=== PATIENT | female | born 1970 | race Caucasian/White ===

== ENCOUNTER → 2017-01-15 | Day surgery (SDC) | payer OTHER ==
[~2017-01-15] MED LIST: ALPR0.5T6 PO; IV RINGERS,LACTATED 1000ML 1,000 ML IV SCH; LIDOCAINE 1% 1 ML SYRINGE. ID PRN; LIDOCAINE 2% PF Vial for OR 5 ML VIAL. ONE; MIDAZOLAM HCL/PF 2 MG/2 ML VIAL. IV PRN; PROPOFOL 20 ML IV ONE; fentaNYL PF VIAL 100 MCG/2 ML VIAL IV PRN
[2017-01-15 14:44] VITALS: BP 131/63
--- NOTE | 2017-01-16 04:44 | CONS ---
DATE OF CONSULTATION: 01/15/2017 REASON FOR CONSULTATION: Dysphagia. REFERRING PHYSICIAN: Chintan Giordano M.D. HISTORY OF PRESENT ILLNESS: A 46-year-old female whose past medical history is significant for thyroid disease, Schatzki's ring, is seen with recurrent dysphagia in the cervical location mainly with solids. She has taken [id number] acid suppression as needed with marked improvement in her symptoms with heartburn. There is minimal caffeine, alcohol and/or nicotine use and no bleeding, no change in weight or appetite. With her recurrent symptoms, she is here for further evaluation. PAST MEDICAL HISTORY: Thyroid disease, Schatzki's ring, right upper quadrant pain. ALLERGIES: IODINE. MEDICATIONS: At the present time include alprazolam. FAMILY AND SOCIAL HISTORY: Father is secondary to [employer]. 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 PAST SURGICAL HISTORY: Status post tonsillectomy, tubal ligation and endometriosis ____. REVIEW OF SYSTEMS: Per records. PHYSICAL EXAMINATION: GENERAL: Reveals a well-nourished, well-developed female who is alert, conversant, in no acute distress. VITAL SIGNS: Temp is 100.2, pulse 77, respiratory rate is 20. HEENT: Reveals a normocephalic, atraumatic head. Pupils and extraocular muscles not tested. Sclerae anicteric. NECK: Supple. LUNGS: Clear. CARDIOVASCULAR: Reveals an S1, S2 without S3, S4 or appreciable murmur. ABDOMEN: Reveals a soft abdomen, normal bowel sounds, without appreciable hepatosplenomegaly. IMPRESSION: Dysphagia with intermittent heartburn, most likely secondary to recurrent Schatzki's ring, Zenker's diverticulum, achalasia and/or Haile's esophagus in the differential. Therefore, recommend upper endoscopy to further assess. Risks and benefits of the procedure including the risk of hemorrhage or perforation were discussed with the patient who is willing to proceed at this time. I would like to thank Dr. Giordano for allowing us to consult and participate in the patient's care. KIMMIE BOSWELL MD DR: CLIFTON/sarai JOB#: [id number] / [id number] CHINTAN Fu MD
== END | disposition home or self-care (01) ==
LOC: SURG 13:31
PROVIDERS: ATTEND Internal Medicine Gastroenterology
DX: K22.2 Esophageal obstruction (principal); K29.50 Unspecified chronic gastritis without bleeding; K21.9 Gastro-esophageal reflux disease without esophagitis; F41.9 Anxiety disorder, unspecified; F32.9 Major depressive disorder, single episode, unspecified; Z90.710 Acquired absence of both cervix and uterus; Z91.041 Radiographic dye allergy status
CPT/HCPCS: 43235; 43450; J2001; J2704

== ENCOUNTER 2019-03-18 07:30 | Emergency (ER) | payer OTHER, BC ==
[~2019-03-18] VITALS: Ht 170.2 cm; Wt 90.7 kg
[~2019-03-18 07:30] MED LIST changes: -IV RINGERS,LACTATED 1000ML 1,000 ML IV SCH; -LIDOCAINE 1% 1 ML SYRINGE. ID PRN; -LIDOCAINE 2% PF Vial for OR 5 ML VIAL. ONE; -MIDAZOLAM HCL/PF 2 MG/2 ML VIAL. IV PRN; -PROPOFOL 20 ML IV ONE; -fentaNYL PF VIAL 100 MCG/2 ML VIAL IV PRN
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
[2019-03-18 07:58] LABS: BASO # 0.1 x10^3/uL (0.0-0.2); BASO % 1 % (0-3); EOS # 0.5 x10^3/uL (0.0-0.7); EOS % 7 % (0-3); HEMATOCRIT 40.1 % (36.0-47.0); HEMOGLOBIN 13.7 g/dL (12.0-15.5); LYMPH # 2.3 x10^3/uL (1.0-4.8); LYMPH % 36 % (24-48); MEAN CORPUSCULAR HEMOGLOBIN 30 pg (25-35); MEAN CORPUSCULAR HGB CONC 34 g/dL (31-37); MEAN CORPUSCULAR VOLUME 89 fL (79-100); MONO # 0.3 x10^3/uL (0.0-1.1); MONO % 5 % (0-9); NEUT # 3.2 x10^3/uL (1.8-7.7); NEUT % 50 % (31-73); PLATELET COUNT 287 x10^3/uL (140-400); RED BLOOD COUNT 4.51 x10^6/uL (3.50-5.40); RED CELL DISTRIBUTION WIDTH 13.4 % (11.5-14.5); WHITE BLOOD COUNT 6.3 x10^3/uL (4.0-11.0)
[2019-03-18 08:04] LABS: CALCIUM 9.6 mg/dL (8.5-10.1); CREATININE 1.1 mg/dL (0.6-1.0); GFR 52.6; POTASSIUM 4.4 mmol/L (3.5-5.1)
[2019-03-18 08:09] LABS: ALBUMIN 3.7 g/dL (3.4-5.0); ALBUMIN/GLOBULIN RATIO 1.1 (1.0-1.7); TOTAL BILIRUBIN 0.3 mg/dL (0.2-1.0); TOTAL PROTEIN 7.1 g/dL (6.4-8.2)
[2019-03-18] MEDS ORDERED: IOHEXOL 300 MG/ML 100ML VIAL. IJ ONE (08:15)
[2019-03-18] MEDS ORDERED: CONTRAST GIVEN. MC PRN (08:30)
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
[2019-03-18 09:43] LABS: BILIRUBIN,URINE NEGATIVE (NEG); CLARITY,URINE CLEAR; COLOR,URINE YELLOW; NITRITE,URINE NEGATIVE (NEG); PROTEIN,URINE NEGATIVE (NEG-TRACE); UROBILINOGEN,URINE 0.2 mg/dL (0.2 mg/dL)
[2019-03-18 09:56] LABS: BACTERIA,URINE 0 /HPF (0-FEW); RBC,URINE 0 /HPF (0-2); SQUAMOUS EPITHELIAL CELL,UR FEW /LPF; WBC,URINE OCC /HPF (0-4)
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
[2019-03-18 10:30] VITALS: BP 149/95
--- NOTE | 2019-03-18 13:03 | EKG ---
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
== END 2019-03-18 11:00 | disposition home or self-care (01) ==
LOC: ER 07:30
DX: M54.2 Cervicalgia (principal); M54.5 Low back pain; M54.6 Pain in thoracic spine; G89.11 Acute pain due to trauma; R07.89 Other chest pain; R51 Headache; R10.9 Unspecified abdominal pain; Z86.79 Personal history of other diseases of the circulatory system; Z91.041 Radiographic dye allergy status; V40.5XXA Car driver injured in collision with pedestrian or animal in traffic accident, initial encounter; Y93.89 Activity, other specified; Y92.488 Other paved roadways as the place of occurrence of the external cause; Y99.8 Other external cause status
CPT/HCPCS: 36415; 70450; 71260; 72125; 74177; 80053; 81001; 85025; 93005; 99285; Q9967